=== PATIENT | female | born 1965 ===

== ENCOUNTER 2022-02-21 12:15 | Inpatient (IN) | payer OTHER ==
[~2022-02-21] VITALS: Ht 154.9 cm; Wt 117.9 kg
[2022-02-21] MEDS ORDERED: RANEXA1000 MG PO (15:52)
[2022-02-21] MEDS ORDERED: TOPROL XL25 M1 PO (15:52)
[2022-02-21] MEDS ORDERED: HUMALOG100 UNIT/2 (15:53)
[2022-02-21] MEDS ORDERED: TREXALL7.5 MG PO (15:53)
[2022-02-21] MEDS ORDERED: LAMOTRIGINE100 MG PO (15:54)
[2022-02-21] MEDS ORDERED: ATORVASTATIN CA80 MG PO (15:54)
[2022-02-21] MEDS ORDERED: SYNTHROID50 MCG PO (15:54)
[2022-02-21] MEDS ORDERED: AVAPRO150 MG PO (15:54)
[2022-02-21] MEDS ORDERED: PANTOPRAZOLE SO20 MG PO (15:55)
[2022-02-21] MEDS ORDERED: CYMBALTA60 MG PO (15:55)
[2022-02-21] MEDS ORDERED: METOLAZONE10 MG PO (16:05)
[2022-02-23] MEDS ORDERED: QUETIAPINE FUM100 MG (13:22)
[2022-02-23] MEDS ORDERED: CLONAZEPAM1 MG (13:22)
[2022-02-23] MEDS ORDERED: IRBESARTAN-HCT1 EACH (13:23)
[2022-02-23] MEDS ORDERED: LINZESS290 MCG (13:23)
[2022-02-23] MEDS ORDERED: PANTOPRAZOLE SO40 MG (13:23)
[2022-02-23] MEDS ORDERED: EZETIMIBE10 MG (13:23)
[2022-02-23] MEDS ORDERED: NITROGLYCERIN0.4 MG (13:23)
[2022-02-23] MEDS ORDERED: PRASUGREL HCL10 MG (13:23)
[2022-02-23] MEDS ORDERED: ST. JOSEPH ASPI81 M2 (13:24)
[2022-02-23] MEDS ORDERED: CLOPIDOGREL BIS75 MG (13:24)
[2022-02-23] MEDS ORDERED: ISOSORBIDE MONO60 M2 (13:24)
[2022-02-23] MEDS ORDERED: GLUCOSE4 GM (13:24)
[2022-02-23] MEDS ORDERED: METOPROLOL TART50 MG (13:24)
== END 2022-02-24 16:55 | disposition home or self-care (01) | DRG 743 ==
LOC: O/R 02-22 08:58 → SURH 02-22 12:15 → OB/GYN 02-22 19:55
PROVIDERS: ADMIT Specialist; ATTEND Specialist
PROC: 0UT70ZZ Resection of Bilateral Fallopian Tubes, Open Approach (ICD-10-PCS; 2022-02-22)
PROC: 0UT00ZZ Resection of Right Ovary, Open Approach (ICD-10-PCS; 2022-02-22)
PROC: 0TN70ZZ Release Left Ureter, Open Approach (ICD-10-PCS; 2022-02-22)
PROC: 0DNW0ZZ Release Peritoneum, Open Approach (ICD-10-PCS; 2022-02-22)
PROC: 0UT90ZZ Resection of Uterus, Open Approach (ICD-10-PCS; principal; 2022-02-22 10:45)
DX: D25.1 Intramural leiomyoma of uterus (principal); N80.2 Endometriosis of fallopian tube; N83.291 Other ovarian cyst, right side; Z20.822 Contact with and (suspected) exposure to COVID-19; D25.0 Submucous leiomyoma of uterus; N73.6 Female pelvic peritoneal adhesions (postinfective)